=== PATIENT | male | born 1960 ===

== ENCOUNTER → 2025-10-26 08:42 | Outpatient (BNVA) | payer MEDICARE, SELFPAY | PROVIDERS: Visit Provider Nurse Practitioner Gerontology | DX: N40.2 Nodular prostate without lower urinary tract symptoms (principal); N40.1 Benign prostatic hyperplasia with lower urinary tract symptoms; R33.9 Retention of urine, unspecified; R97.20 Elevated prostate specific antigen [PSA]; I10 Essential (primary) hypertension; R39.9 Unspecified symptoms and signs involving the genitourinary system | CPT/HCPCS: 99205; 81002; 51798 ==

== ENCOUNTER 2025-10-26 09:58 | Outpatient (CLI) | payer MEDICARE, SELFPAY ==
[2025-10-26 18:40] LABS: PSA, Diagnostic 0.7 ng/mL (<=4.5)
== END 2025-10-26 09:59 | disposition home or self-care (01) ==
LOC: LBO 10:00
PROVIDERS: PCP Nurse Practitioner Gerontology; Visit Provider Nurse Practitioner Gerontology
DX: R97.20 Elevated prostate specific antigen [PSA] (principal); N40.2 Nodular prostate without lower urinary tract symptoms
CPT/HCPCS: 36415; 84153